=== PATIENT | female | born 2000 | race Caucasian/White ===

== ENCOUNTER 2019-05-06 22:28 | Emergency (ER) | payer BC ==
--- NOTE | 2019-05-06 23:07 | EDM.PDOC ---
ED HPI GENERAL MEDICAL PROBLEM - General Chief Complaint: Neurological Problem Stated Complaint: HEAD HURTS Time Seen by Provider: 05/06/19 22:50 Source of Information: Reports: Patient History Limitations: Reports: No Limitations - History of Present Illness INITIAL COMMENTS - FREE TEXT/NARRATIVE: pt comes ambulatory from home with concerns for head injury, states she slipped on ice in-front of her house and fell back word, c/o pain at back of her head, denies any LOC or any other injuries or any other associated sx or medical concerns, no neuro sx , report some nausea, no other sx. Headache Pain Score (Numeric/FACES): 9 - Related Data Allergies Allergy/AdvReac Type Severity Reaction Status Date / Time amoxicillin Allergy Rash Verified 05/06/19 22:44 Home Meds: Home Meds Citalopram Hydrobromide [Celexa] 40 mg PO DAILY 05/06/19 [History] buPROPion [Wellbutrin] 200 mg PO BID 05/06/19 [History] Past Medical History Psychiatric History: Reports: Anxiety, Depression - Past Surgical History HEENT Surgical History: Reports: Oral Surgery Social & Family History - Tobacco Use Smoking Status *Q: Current Every Day Smoker Years of Tobacco use: 3 Packs/Tins Daily: 0.5 - Caffeine Use Caffeine Use: Reports: Soda - Recreational Drug Use Recreational Drug Use: No ED ROS GENERAL - Review of Systems Review Of Systems: See Below Constitutional: Reports: No Symptoms HEENT: Reports: No Symptoms. Denies: Vertigo Respiratory: Reports: No Symptoms Cardiovascular: Reports: No Symptoms GI/Abdominal: Reports: No Symptoms Musculoskeletal: Reports: No Symptoms Skin: Reports: No Symptoms ED EXAM, GENERAL - Physical Exam Exam: See Below Exam Limited By: No Limitations General Appearance: Alert, No Apparent Distress Eye Exam: Bilateral Eye: PERRL Ears: Normal External Exam, Normal TMs Nose: Normal Inspection. No: Nasal Drainage Throat/Mouth: Normal Inspection, Normal Oropharynx Head: Atraumatic, Normocephalic, Other (tender at back of her head , skin is intact no swelling or hematoma. ) Neck: Normal Inspection, Supple, Non-Tender, Full Range of Motion Respiratory/Chest: No Respiratory Distress, Lungs Clear, Normal Breath Sounds Cardiovascular: Normal Peripheral Pulses, Regular Rate, Rhythm, No Edema GI/Abdominal: Normal Bowel Sounds, Soft, Non-Tender Extremities: Normal Inspection, Normal Range of Motion, Non-Tender Neurological: Alert, Oriented, CN II-XII Intact, Normal Gait, No Motor/Sensory Deficits Course - Vital Signs Text/Narrative:: clinically pt has head / scalp contusion injury after accidental fall and supportive mng was recommended. follow up is PRN. Last Recorded V/S: Last Vital Signs Temp 36.7 C 05/06/19 22:30 Pulse 108 H 05/06/19 22:30 Resp 20 05/06/19 22:30 BP 135/76 05/06/19 22:30 Pulse Ox 99 05/06/19 22:30 Departure - Departure Time of Disposition: 23:07 Disposition: Home, Self-Care 01 Clinical Impression: Head contusion - Discharge Information Referrals: Amirah Ayala NP [Primary Care Provider] -
== END 2019-05-06 23:15 | disposition home or self-care (01) ==
LOC: FB.ED 22:28
DX: S00.03XA Contusion of scalp, initial encounter (principal); F32.9 Major depressive disorder, single episode, unspecified; F17.210 Nicotine dependence, cigarettes, uncomplicated; Z88.0 Allergy status to penicillin; Z79.899 Other long term (current) drug therapy; W00.0XXA Fall on same level due to ice and snow, initial encounter
CPT/HCPCS: 99283

== ENCOUNTER 2019-06-06 12:23 | Emergency (ER) | payer BC ==
[2019-06-06] MEDS ORDERED: Acetaminophen 500 MG Tab PO ONE (13:28)
[2019-06-06] MEDS ORDERED: Ketorolac 60 MG/2 ML SDV IM ONE (13:28)
[2019-06-06] MEDS ORDERED: Cyclobenzaprine 10 MG Tab PO ONE (13:29)
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
== END 2019-06-06 15:01 | disposition home or self-care (01) ==
LOC: FB.ED 12:23
DX: S33.5XXA Sprain of ligaments of lumbar spine, initial encounter (principal); I10 Essential (primary) hypertension; F41.9 Anxiety disorder, unspecified; F32.9 Major depressive disorder, single episode, unspecified; E66.9 Obesity, unspecified; Z68.36 Body mass index [BMI] 36.0-36.9, adult; F17.210 Nicotine dependence, cigarettes, uncomplicated; Z88.1 Allergy status to other antibiotic agents; Z79.899 Other long term (current) drug therapy; X50.0XXA Overexertion from strenuous movement or load, initial encounter
CPT/HCPCS: 96372; 99283; A9270; J1885

== ENCOUNTER 2021-09-11 18:37 | Emergency (ER) | payer BC, MEDICAID ==
[2021-09-11] MEDS ORDERED: Sodium Chloride 0.9% 10 ML Syringe FLUSH PRN (18:59)
== END 2021-09-11 20:05 | disposition home or self-care (01) ==
LOC: FB.ED 18:37
DX: O99.891 Other specified diseases and conditions complicating pregnancy (principal); R10.31 Right lower quadrant pain; I10 Essential (primary) hypertension; K21.9 Gastro-esophageal reflux disease without esophagitis; Z88.0 Allergy status to penicillin; Z3A.01 Less than 8 weeks gestation of pregnancy
CPT/HCPCS: 36415; 80053; 81001; 82150; 83690; 84702; 85025; 99282; 99284